=== PATIENT | female | born 1990 | race American Indian/Alaskan Native ===

== ENCOUNTER 2017-06-18 12:39 | Emergency (ER) | payer SELFPAY ==
[2017-06-18 13:39] LABS: Mucus,Urine FEW /HPF
[2017-06-18 13:51] LABS: Bilirubin,Urine Negative (Negative); Blood,Urine Negative (Negative); Ketones,Urine Negative (Negative); Nitrite,Urine Negative (Negative); Urobilinogen,Urine < 2.0 mg/dL (<2.0)
[2017-06-18 13:52] LABS: Leukocyte Esterase,Urine Small (Negative)
[2017-06-18 14:02] LABS: Basophils % (Auto) 0.6 % (0.0-1.8); Eosinophils % (Auto) 3.9 % (0.0-4.3); Hematocrit 38.8 % (30.3-42.9); Hemoglobin 12.6 gm/dl (10.1-14.3); Mean Corpuscular HGB Conc 32 % (30-34); Mean Corpuscular Hemoglobin 27 pg (28-32); Mean Corpuscular Volume 84 fl (79-97); Platelet Count 319 K/mm3 (140-440); Red Blood Count 4.65 M/mm3 (3.65-5.03); Red Cell Distribution Width 15.4 % (13.2-15.2)
[2017-06-18 14:08] LABS: Alanine Aminotransferase 16 units/L (7-56); Albumin 4.2 g/dL (3.9-5); Albumin/Globulin Ratio 1.2 %; Alkaline Phosphatase 42 units/L (35-129); Anion Gap 18 mmol/L; BUN/Creatinine Ratio 22; Blood Urea Nitrogen 13 mg/dL (7-17); Calcium 8.9 mg/dL (8.4-10.2); Carbon Dioxide 23 mmol/L (22-30); Chloride 103.5 mmol/L (98-107); Glucose 89 mg/dL (65-100); Lipase 27 units/L (13-60); Potassium 4.3 mmol/L (3.6-5.0); Sodium 140 mmol/L (137-145); Total Protein 7.6 g/dL (6.3-8.2)
[2017-06-18] MEDS ORDERED: ULTRAM PO ONE (20:42)
[2017-06-18] MEDS ORDERED: TORADOL IM ONE (20:42)
--- NOTE | 2017-06-18 20:47 | Emergency Department Report ---
ED Female HPI - General Chief complaint: Abdominal Pain Stated complaint: ABDOMINAL PAIN,VAGINAL BLEEDING Time Seen by Provider: 06/18/17 20:06 Source: patient Mode of arrival: Ambulatory Limitations: No Limitations - History of Present Illness Initial comments: 27-year-old female in no significant past medical history presents to the hospital complaining of suprapubic pelvic pain and vaginal spotting since January. Patient states she has had irregular menses during this time sometimes skipping months then having 2 periods within 1 month. Menstrual flow lasting 11 -13 days instead a typical 5 days. Patient have a severe intermittent cramps with bleeding episodes. Motrin helps pain temporarily. No bleeding reported at this time. Patient denies lightheadedness, fever, or weakness. Patient had multiple negative tests at home prior to arrival. She socially active with one partner and does not use condoms. Patient does report abnormal Pap smear last year with subsequent normal Pap smear. She expresses concern for cervical cancer and HPV. BUDGET ANALYST doctor none - Related Data Previous Rx's Medication Instructions Recorded Last Taken Type Acetaminophen/Codeine [Tylenol 1 tab PO Q6H PRN #15 tab 12/13/14 Unknown Rx /Codeine # 3 tab] Famotidine [Pepcid] 20 mg PO BID #40 tablet 12/13/14 Unknown Rx Promethazine [Phenergan] 25 mg PO Q6H PRN #20 tablet 12/13/14 Unknown Rx oxyCODONE /ACETAMINOPHEN [Percocet 1 tab PO Q6HR PRN #30 tablet 04/29/15 Unknown Rx 5/325 mg] Ibuprofen [Motrin 800 MG tab] 800 mg PO Q8HR PRN #30 tablet 06/18/17 Unknown Rx metroNIDAZOLE [Flagyl] 500 mg PO Q12HR #14 tab 06/18/17 Unknown Rx traMADol [Ultram 50 MG tab] 50 mg PO Q6HR PRN #20 tablet 06/18/17 Unknown Rx Allergies Allergy/AdvReac Type Severity Reaction Status Date / Time No Known Allergies Allergy Verified 09/06/14 13:04 ED Review of Systems ROS: Stated complaint: ABDOMINAL PAIN,VAGINAL BLEEDING Other details as noted in HPI Comment: All other systems reviewed and negative Other: Constitutional: No fevers chills Eyes: No eye pain visual changes or discharge ENT: No ear pain or throat pain Neck: Denies pain Respiratory: Denies cough wheezing shortness of breath Cardiovascular: Denies chest pain, palpitations, syncope GI: Denies nausea, vomiting, diarrhea : Denies dysuria Musculoskeletal: Denies back pain, joint swelling Skin: Denies rash, lesions, erythema Neurologic: Denies headache, numbness, weakness Psychiatric: Denies suicidal ideation, hallucinations ED Past Medical Hx - Past Medical History Hx Hypertension: No Hx Congestive Heart Failure: No Hx Diabetes: No Hx Deep Vein Thrombosis: No Hx Renal Disease: No Hx Sickle Cell Disease: No Hx Seizures: No Hx Asthma: No Hx COPD: No Hx HIV: No - Social History Smoking Status: Current Every Day Smoker Substance Use Type: None - Medications Home Medications: Home Medications Medication Instructions Recorded Confirmed Last Taken Type Acetaminophen/Codeine [Tylenol 1 tab PO Q6H PRN #15 tab 12/13/14 03/07/15 Unknown Rx /Codeine # 3 tab] Famotidine [Pepcid] 20 mg PO BID #40 tablet 12/13/14 03/07/15 Unknown Rx Promethazine [Phenergan] 25 mg PO Q6H PRN #20 tablet 12/13/14 03/07/15 Unknown Rx oxyCODONE /ACETAMINOPHEN [Percocet 1 tab PO Q6HR PRN #30 tablet 04/29/15 Unknown Rx 5/325 mg] Ibuprofen [Motrin 800 MG tab] 800 mg PO Q8HR PRN #30 tablet 06/18/17 Unknown Rx metroNIDAZOLE [Flagyl] 500 mg PO Q12HR #14 tab 06/18/17 Unknown Rx traMADol [Ultram 50 MG tab] 50 mg PO Q6HR PRN #20 tablet 06/18/17 Unknown Rx ED Physical Exam - General Limitations: No Limitations - Other Other exam information: General: No limitations, patient is alert in no acute distress Head exam: Atraumatic, normocephalic Eyes exam: Normal appearance ENT: Moist mucous membrane, normal oropharynx Neck exam: Normal inspection, full range of motion, no meningismus nontender Respiratory exam: Clear to auscultation bilateral, no wheezes, rales, crackles Cardiovascular: Normal rate and rhythm, normal heart sounds Abdomen: Soft, nondistended, suprapubic tenderness, with normal bowel sounds, no rebound, or guarding : White vaginal discharge, no CMT or adnexal tenderness, no gross cervical abnormality Extremity: Full range of motion normal inspection no deformity Back: Normal Inspection, full range of motion, no tenderness Neurologic: Alert, oriented x3, cranial nerves intact, no motor or sensory deficit Psychiatric: normal affect, normal mood Skin: Warm, dry, intact ED Course Vital Signs 06/18/17 12:45 Temperature 98 F Pulse Rate 84 Respiratory 18 Rate Blood Pressure 130/84 O2 Sat by Pulse 100 Oximetry - Reevaluation(s) Reevaluation #1: 06/18/17 20:48 Toradol and tramadol ordered ED Medical Decision Making - Lab Data Result diagrams: 06/18/17 13:04 06/18/17 13:04 Lab Results 06/18/17 06/18/17 06/18/17 Range/Units 13:04 13:04 13:04 WBC 6.0 (4.5-11.0) K/mm3 RBC 4.65 (3.65-5.03) M/mm3 Hgb 12.6 (10.1-14.3) gm/dl Hct 38.8 (30.3-42.9) % MCV 84 (79-97) fl MCH 27 L (28-32) pg MCHC 32 (30-34) % RDW 15.4 H (13.2-15.2) % Plt Count 319 (140-440) K/mm3 Lymph % (Auto) 29.7 (13.4-35.0) % Wallace % (Auto) 4.4 (0.0-7.3) % Eos % (Auto) 3.9 (0.0-4.3) % Baso % (Auto) 0.6 (0.0-1.8) % Lymph # 1.8 (1.2-5.4) K/mm3 Wallace # 0.3 (0.0-0.8) K/mm3 Eos # 0.2 (0.0-0.4) K/mm3 Baso # 0.0 (0.0-0.1) K/mm3 Seg Neutrophils % 61.4 (40.0-70.0) % Seg Neutrophils # 3.7 (1.8-7.7) K/mm3 Sodium 140 (137-145) mmol/L Potassium 4.3 (3.6-5.0) mmol/L Chloride 103.5 (98-107) mmol/L Carbon Dioxide 23 (22-30) mmol/L Anion Gap 18 mmol/L BUN 13 (7-17) mg/dL Creatinine 0.6 L (0.7-1.2) mg/dL Estimated GFR > 60 ml/min BUN/Creatinine Ratio 22 % Glucose 89 (65-100) mg/dL Calcium 8.9 (8.4-10.2) mg/dL Total Bilirubin 0.20 (0.1-1.2) mg/dL AST 16 (5-40) units/L ALT 16 (7-56) units/L Alkaline Phosphatase 42 (35-129) units/L Total Protein 7.6 (6.3-8.2) g/dL Albumin 4.2 (3.9-5) g/dL Albumin/Globulin Ratio 1.2 % Lipase 27 (13-60) units/L HCG, Qual Negative (Negative) Urine Color (Yellow) Urine Turbidity (Clear) Urine pH (5.0-7.0) Ur Specific [place] (1.003-1.030) Urine Protein (Negative) mg/dL Urine Glucose (UA) (Negative) mg/dL Urine Ketones (Negative) mg/dL Urine Blood (Negative) Urine Nitrite (Negative) Ur Reducing Substances Urine Bilirubin (Negative) Urine Ictotest Urine Urobilinogen (<2.0) mg/dL Ur Leukocyte Esterase (Negative) Urine WBC (Auto) (0.0-6.0) /HPF Urine RBC (Auto) (0.0-6.0) /HPF U Epithel Cells (Auto) (0-13.0) /HPF Urine Mucus /HPF 06/18/17 Range/Units 13:06 WBC (4.5-11.0) K/mm3 RBC (3.65-5.03) M/mm3 Hgb (10.1-14.3) gm/dl Hct (30.3-42.9) % MCV (79-97) fl MCH (28-32) pg MCHC (30-34) % RDW (13.2-15.2) % Plt Count (140-440) K/mm3 Lymph % (Auto) (13.4-35.0) % Wallace % (Auto) (0.0-7.3) % Eos % (Auto) (0.0-4.3) % Baso % (Auto) (0.0-1.8) % Lymph # (1.2-5.4) K/mm3 Wallace # (0.0-0.8) K/mm3 Eos # (0.0-0.4) K/mm3 Baso # (0.0-0.1) K/mm3 Seg Neutrophils % (40.0-70.0) % Seg Neutrophils # (1.8-7.7) K/mm3 Sodium (137-145) mmol/L Potassium (3.6-5.0) mmol/L Chloride (98-107) mmol/L Carbon Dioxide (22-30) mmol/L Anion Gap mmol/L BUN (7-17) mg/dL Creatinine (0.7-1.2) mg/dL Estimated GFR ml/min BUN/Creatinine Ratio % Glucose (65-100) mg/dL Calcium (8.4-10.2) mg/dL Total Bilirubin (0.1-1.2) mg/dL AST (5-40) units/L ALT (7-56) units/L Alkaline Phosphatase (35-129) units/L Total Protein (6.3-8.2) g/dL Albumin (3.9-5) g/dL Albumin/Globulin Ratio % Lipase (13-60) units/L HCG, Qual (Negative) Urine Color Yellow (Yellow) Urine Turbidity Slightly cloudy (Clear) Urine pH 5.0 (5.0-7.0) Ur Specific [place] 1.030 (1.003-1.030) Urine Protein 30 mg/dl (Negative) mg/dL Urine Glucose (UA) Negative (Negative) mg/dL Urine Ketones Negative (Negative) mg/dL Urine Blood Negative (Negative) Urine Nitrite Negative (Negative) Ur Reducing Substances Not Reportable Urine Bilirubin Negative (Negative) Urine Ictotest Not Reportable Urine Urobilinogen < 2.0 (<2.0) mg/dL Ur Leukocyte Esterase Small (Negative) Urine WBC (Auto) 1.0 (0.0-6.0) /HPF Urine RBC (Auto) 1.0 (0.0-6.0) /HPF U Epithel Cells (Auto) 6.0 (0-13.0) /HPF Urine Mucus Few /HPF - Radiology Data Radiology results: report reviewed (us transvag/pelvic: 1.9cm slightly complex right ovarian cyst. no mral doppler flow) - Medical Decision Making Plan to treat patient symptomatically for irregular painful menses. Patient receiving Flagyl for BV. O2 sat significant for ovarian cysts. BUDGET ANALYST follow-up will be encouraged. - Differential Diagnosis , anemia, fibroids, STD, vaginitis, cervicitis, Cancer Critical Care Time: No Critical care attestation.: If time is entered above; I have spent that time in minutes in the direct care of this critically ill patient, excluding procedure time. ED Disposition Clinical Impression: Menometrorrhagia, Right ovarian cyst, BV (bacterial vaginosis) Disposition: DC- TO HOME OR SELFCARE Is pt being admited?: No Does the pt Need Aspirin: No Condition: Stable Instructions: Dysfunctional Uterine Bleeding (ED), Bacterial Vaginosis (ED), Ovarian Cyst (ED) Additional Instructions: Take the medication as prescribed. It is very important that you follow up with BUDGET ANALYST for further evaluation of irregular menstrual cycle and ovarian cyst. Your gonorrhea and chlamydia tests are pending and take approximately 3-4 days result. You may obtain results in medical records with a photo ID. You may also obtain results through the follow-up doctor office via medical record request. Prescriptions: Ibuprofen [Motrin 800 MG tab] 800 mg PO Q8HR PRN #30 tablet PRN Reason: Pain metroNIDAZOLE [Flagyl] 500 mg PO Q12HR #14 tab traMADol [Ultram 50 MG tab] 50 mg PO Q6HR PRN #20 tablet PRN Reason: Pain Referrals: [facility] [Provider Group] - 3-5 Days [facility] [Outside] - 3-5 Days [facility] [Provider Group] - 3-5 Days Forms: STI Treatment and Prevention, Accompanied Note Time of Disposition: 22:44
[2017-06-18] MEDS ORDERED: FLAGYL PO ONE (22:02)
--- NOTE | 2017-06-18 22:29 | Ultrasound Report ---
FINAL REPORT PROCEDURE: US PELVIC COMPLETE TECHNIQUE: Real-time transabdominal sonography in multiple planes of the pelvis was performed. The pelvic structures, especially the ovaries were not optimally visualized. Transvaginal sonography was then performed to better evaluate the structures and/or abnormalities described below with image documentation. Color Doppler ultrasound is performed of the ovaries. HISTORY: irregular menses, pelvic pain COMPARISON: No prior studies are available for comparison. FINDINGS: Uterus measures 9.4 cm in length. Endometrial thickness is 1.3 cm. Right ovary measures 3.3 x 2.1 x 3.7 cm. It contains a slightly complex 1.9 cm cyst. Left ovary measures 2.9 x 1.3 x 2.8 cm. Normal Doppler flow is seen in the ovaries. Trace free pelvic fluid is likely physiologic. IMPRESSION: 1.9 cm slightly complex right ovarian cyst is seen.
[2017-06-19 00:54] VITALS: BP 128/77
== END 2017-06-18 23:00 | disposition home or self-care (01) ==
LOC: ED 12:39
DX: N83.201 Unspecified ovarian cyst, right side (principal); N76.0 Acute vaginitis; N92.1 Excessive and frequent menstruation with irregular cycle; F17.210 Nicotine dependence, cigarettes, uncomplicated
CPT/HCPCS: 36415; 76830; 76856; 80053; 81001; 83690; 84703; 85025; 87210; 87591; 96372; 99284; J1885

== ENCOUNTER 2017-11-21 00:33 | Emergency (ER) | payer SELFPAY ==
[2017-11-21 03:01] LABS: Hematocrit 40.4 % (30.3-42.9); Hemoglobin 13.4 gm/dl (10.1-14.3); Mean Corpuscular HGB Conc 33 % (30-34); Mean Corpuscular Hemoglobin 27 pg (28-32); Mean Corpuscular Volume 81 fl (79-97); Platelet Count 279 K/mm3 (140-440); Red Blood Count 4.97 M/mm3 (3.65-5.03); Red Cell Distribution Width 14.8 % (13.2-15.2)
[2017-11-21 03:15] LABS: BUN/Creatinine Ratio 13; Blood Urea Nitrogen 8 mg/dL (7-17); Calcium 8.9 mg/dL (8.4-10.2)
[2017-11-21 03:16] LABS: Hemolysis Index 0
[2017-11-21 03:24] LABS: Bilirubin,Urine NEG (Negative); Blood,Urine NEG (Negative); Color,Urine Yellow (Yellow); Hyaline Casts,Urine 1 /LPF; Mucus,Urine 3+ /HPF; Protein,Urine <15 mg/dL mg/dL (Negative); Urobilinogen,Urine < 2.0 mg/dL (<2.0)
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
[2017-11-21] MEDS ORDERED: ZOFRAN ODT PO ONE ×2 (04:09→06:37)
[2017-11-21 06:10] VITALS: BP 106/55
[2017-11-21] MEDS ORDERED: TYLENOL PO ONE (06:38)
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
[2017-11-21] MEDS ORDERED: PHENERGAN PO ONE (07:03)
== END 2017-11-21 08:34 | disposition home or self-care (01) ==
LOC: ED 00:33
DX: K52.9 Noninfective gastroenteritis and colitis, unspecified (principal); R42 Dizziness and giddiness; R51 Headache; R59.0 Localized enlarged lymph nodes; F17.200 Nicotine dependence, unspecified, uncomplicated
CPT/HCPCS: 36415; 70450; 80048; 81001; 84703; 85027; 99284; Q0162; Q0169

== ENCOUNTER 2017-11-28 17:24 | Emergency (ER) | payer SELFPAY ==
[2017-11-28 18:26] LABS: Basophils % (Auto) 0.2 % (0.0-1.8); Eosinophils # (Auto) 0.1 K/mm3 (0.0-0.4); Eosinophils % (Auto) 2.7 % (0.0-4.3); Hematocrit 39.8 % (30.3-42.9); Hemoglobin 12.7 gm/dl (10.1-14.3); Lymphocytes # (Auto) 1.2 K/mm3 (1.2-5.4); Lymphocytes % (Auto) 31.9 % (13.4-35.0); Mean Corpuscular HGB Conc 32 % (30-34); Mean Corpuscular Hemoglobin 26 pg (28-32); Mean Corpuscular Volume 82 fl (79-97); Monocytes # (Auto) 0.4 K/mm3 (0.0-0.8); Monocytes % (Auto) 10.4 % (0.0-7.3); Platelet Count 321 K/mm3 (140-440); Red Blood Count 4.86 M/mm3 (3.65-5.03); Red Cell Distribution Width 14.8 % (13.2-15.2)
[2017-11-28 18:46] LABS: Alanine Aminotransferase 15 units/L (7-56); BUN/Creatinine Ratio 10; Blood Urea Nitrogen 6 mg/dL (7-17); Calcium 8.7 mg/dL (8.4-10.2); Hemolysis Index 6
[2017-11-28 19:05] LABS: HCG Qualitative,Urine Negative (Negative)
[2017-11-28 19:19] LABS: Mucus,Urine 3+ /HPF
[2017-11-28 19:20] LABS: Bilirubin,Urine NEG (Negative); Blood,Urine MOD (Negative); Color,Urine Yellow (Yellow); Urobilinogen,Urine < 2.0 mg/dL (<2.0)
[2017-11-29] MEDS ORDERED: REGLAN IV ONE (04:07)
[2017-11-29] MEDS ORDERED: NACL 0.9% 1000 ML 1,000 ML IV ONE (04:07)
[2017-11-29] MEDS ORDERED: NACL ONE (04:13)
--- NOTE | 2017-11-29 05:35 | Cat Scan Report ---
FINAL REPORT PROCEDURE: CT ABDOMEN PELVIS W CON TECHNIQUE: Computerized axial tomography of the abdomen and pelvis was performed after the IV injection of iodinated nonionic contrast. HISTORY: intractable nausea and vomiting COMPARISON: No prior studies are available for comparison. FINDINGS: Visualized lower thorax: No significant abnormality. Liver: Normal size and attenuation. Spleen: Normal size and attenuation. Gallbladder and biliary system: Normal. Pancreas: Normal. Adrenals: Normal. Kidneys: Normal. GI tract: No obstruction. No ileus or enteritis. The cecum, appendix and colon are normal.. Lymph nodes and mesentery: Normal. Vasculature: Normal. Bladder: Normal. Reproductive organs: No pelvic masses. Peritoneum: No free fluid. Musculoskeletal structures: No significant abnormality. Other: None. IMPRESSION: There is no evidence of intestinal or urinary tract obstruction. No ileus or enteritis. The appendix is normal.
[2017-11-29] MEDS ORDERED: ROCEPHIN/NS 1 GM/50 ML 1 GM/50 ML BAG IV ONE (06:20)
[2017-11-29] MEDS ORDERED: cefTRIAXone 1 GM in NACL 0.9% 20 ML IV ONE (07:00)
--- NOTE | 2017-11-29 07:28 | Emergency Department Report ---
ED General Adult HPI - General Chief complaint: Nausea/Vomiting/Diarrhea Stated complaint: CONTINUOUS VOMITTING Time Seen by Provider: 11/29/17 06:18 Source: patient Mode of arrival: Ambulatory Limitations: No Limitations - History of Present Illness Initial comments: Plan 7-year-old female who was seen a few days ago for similar symptoms. She states that she took 2 unknown antibiotics from her mother. She developed a "yeast infection". She has not complained of dysuria or frequency. She states her nausea has essentially resolved and he is not vomiting now nor has she says she's been in the emergency department. She does not complain of abdominal pain. She's had no recent fever or chills. She's been recently treated with Flagyl (06/2018). -: Gradual Consistency: now resolved Improves with: none Worsens with: none Associated Symptoms: denies other symptoms - Related Data Previous Rx's Medication Instructions Recorded Last Taken Type Acetaminophen/Codeine [Tylenol 1 tab PO Q6H PRN #15 tab 12/13/14 Unknown Rx /Codeine # 3 tab] Famotidine [Pepcid] 20 mg PO BID #40 tablet 12/13/14 Unknown Rx Promethazine [Phenergan] 25 mg PO Q6H PRN #20 tablet 12/13/14 Unknown Rx oxyCODONE /ACETAMINOPHEN [Percocet 1 tab PO Q6HR PRN #30 tablet 04/29/15 Unknown Rx 5/325 mg] Ibuprofen [Motrin 800 MG tab] 800 mg PO Q8HR PRN #30 tablet 06/18/17 Unknown Rx metroNIDAZOLE [Flagyl] 500 mg PO Q12HR #14 tab 06/18/17 Unknown Rx traMADol [Ultram 50 MG tab] 50 mg PO Q6HR PRN #20 tablet 06/18/17 Unknown Rx Ondansetron [Zofran TAB] 4 mg PO Q8HR PRN #10 tablet 11/21/17 Unknown Rx Cefuroxime Axetil [Ceftin] 250 mg PO Q12H #14 ml 11/29/17 Unknown Rx Allergies Allergy/AdvReac Type Severity Reaction Status Date / Time No Known Allergies Allergy Verified 09/06/14 13:04 ED Review of Systems ROS: Stated complaint: CONTINUOUS VOMITTING Other details as noted in HPI Constitutional: denies: chills, fever Eyes: denies: eye pain, eye discharge, vision change ENT: denies: ear pain, throat pain Respiratory: denies: cough, shortness of breath, wheezing Cardiovascular: denies: chest pain, palpitations Endocrine: no symptoms reported Gastrointestinal: denies: abdominal pain, nausea, diarrhea Genitourinary: as per HPI, discharge Musculoskeletal: denies: back pain, joint swelling, arthralgia Skin: denies: rash, lesions Neurological: denies: headache, weakness, paresthesias Psychiatric: denies: anxiety, depression Hematological/Lymphatic: denies: easy bleeding, easy bruising ED Past Medical Hx - Past Medical History Hx Hypertension: No Hx Congestive Heart Failure: No Hx Diabetes: No Hx Deep Vein Thrombosis: No Hx Renal Disease: No Hx Sickle Cell Disease: No Hx Seizures: No Hx Asthma: No Hx COPD: No Hx HIV: No - Social History Smoking Status: Current Every Day Smoker Substance Use Type: None - Medications Home Medications: Home Medications Medication Instructions Recorded Confirmed Last Taken Type Acetaminophen/Codeine [Tylenol 1 tab PO Q6H PRN #15 tab 12/13/14 03/07/15 Unknown Rx /Codeine # 3 tab] Famotidine [Pepcid] 20 mg PO BID #40 tablet 12/13/14 03/07/15 Unknown Rx Promethazine [Phenergan] 25 mg PO Q6H PRN #20 tablet 12/13/14 03/07/15 Unknown Rx oxyCODONE /ACETAMINOPHEN [Percocet 1 tab PO Q6HR PRN #30 tablet 04/29/15 Unknown Rx 5/325 mg] Ibuprofen [Motrin 800 MG tab] 800 mg PO Q8HR PRN #30 tablet 06/18/17 Unknown Rx metroNIDAZOLE [Flagyl] 500 mg PO Q12HR #14 tab 06/18/17 Unknown Rx traMADol [Ultram 50 MG tab] 50 mg PO Q6HR PRN #20 tablet 06/18/17 Unknown Rx Ondansetron [Zofran TAB] 4 mg PO Q8HR PRN #10 tablet 11/21/17 Unknown Rx Cefuroxime Axetil [Ceftin] 250 mg PO Q12H #14 ml 11/29/17 Unknown Rx ED Physical Exam - General Limitations: No Limitations General appearance: alert, in no apparent distress - Head Head exam: Present: atraumatic, normocephalic - Eye Eye exam: Present: normal appearance, PERRL, EOMI. Absent: scleral icterus - ENT ENT exam: Present: mucous membranes moist - Neck Neck exam: Present: normal inspection. Absent: tenderness, meningismus - Respiratory Respiratory exam: Present: normal lung sounds bilaterally. Absent: respiratory distress - Cardiovascular Cardiovascular Exam: Present: regular rate, normal rhythm. Absent: systolic murmur, diastolic murmur, rubs, gallop - GI/Abdominal GI/Abdominal exam: Present: soft, normal bowel sounds. Absent: distended, tenderness, guarding, rebound, rigid - Extremities Exam Extremities exam: Present: normal inspection - Back Exam Back exam: Present: normal inspection - Neurological Exam Neurological exam: Present: alert, oriented X3, CN II-XII intact. Absent: motor sensory deficit - Psychiatric Psychiatric exam: Present: normal affect, normal mood - Skin Skin exam: Present: warm, dry, intact, normal color. Absent: rash ED Course Vital Signs 11/28/17 11/29/17 11/29/17 17:28 02:44 04:00 Temperature 98.8 F Pulse Rate 78 64 Respiratory 16 16 16 Rate Blood Pressure 111/81 Blood Pressure 134/71 [Left] O2 Sat by Pulse 100 98 100 Oximetry 11/29/17 07:10 Temperature Pulse Rate 72 Respiratory 16 Rate Blood Pressure Blood Pressure 133/78 [Left] O2 Sat by Pulse 100 Oximetry - Reevaluation(s) Reevaluation #1: Patient comfortable, well-hydrated and without nausea. She was given ceftriaxone and azithromycin. She is referred to [facility] for further care and evaluation. A urine culture is pending. 11/29/17 07:36 11/29/17 07:37 ED Medical Decision Making - Lab Data Result diagrams: 11/28/17 17:45 11/28/17 17:45 Laboratory Results - last 24 hr 11/28/17 11/28/17 11/28/17 17:45 17:45 18:07 WBC 3.7 L RBC 4.86 Hgb 12.7 Hct 39.8 MCV 82 MCH 26 L MCHC 32 RDW 14.8 Plt Count 321 Lymph % (Auto) 31.9 [place] % (Auto) 10.4 H Eos % (Auto) 2.7 Baso % (Auto) 0.2 Lymph # 1.2 [place] # 0.4 Eos # 0.1 Baso # 0.0 Seg Neutrophils % 54.8 Seg Neutrophils # 2.0 Sodium 140 Potassium 3.6 Chloride 100.0 Carbon Dioxide 28 Anion Gap 16 BUN 6 L Creatinine 0.6 L Estimated GFR > 60 BUN/Creatinine Ratio 10 Glucose 98 Calcium 8.7 Total Bilirubin 0.40 AST 15 ALT 15 Alkaline Phosphatase 59 Total Protein 7.7 Albumin 4.0 Albumin/Globulin Ratio 1.1 Urine Color Yellow Urine Turbidity Clear Urine pH 6.0 Ur Specific [place] 1.023 Urine Protein 30 mg/dl Urine Glucose (UA) Neg Urine Ketones 20 Urine Blood Mod Urine Nitrite Neg Ur Reducing Substances Not Reportable Urine Bilirubin Neg Urine Ictotest Not Reportable Urine Urobilinogen < 2.0 Ur Leukocyte Esterase Mod Urine WBC (Auto) 8.0 H Urine RBC (Auto) 3.0 U Epithel Cells (Auto) 12.0 Urine Mucus 3+ Urine HCG, Qual Negative Critical care attestation.: If time is entered above; I have spent that time in minutes in the direct care of this critically ill patient, excluding procedure time. ED Disposition Clinical Impression: UTI (urinary tract infection) Qualifiers: Urinary tract infection type: acute cystitis Hematuria presence: without hematuria Qualified Code(s): N30.00 - Acute cystitis without hematuria Disposition: DC-01 TO HOME OR SELFCARE Is pt being admited?: No Does the pt Need Aspirin: No Condition: Stable Instructions: Urinary Tract Infection in Women (ED), Vaginitis (ED) Additional Instructions: Further evaluation of the buggy ladle tender as recommended. Follow-up on your urine culture which will be resulted in 2-3 days. See referral. Return any acute change or problem. Prescriptions: Cefuroxime Axetil [Ceftin] 250 mg PO Q12H #14 ml Referrals: PRIMARY CARE [Primary Care Provider] - 3-5 Days Time of Disposition: 07:38
[2017-11-29 07:31] VITALS: BP 133/78
== END 2017-11-29 07:54 | disposition home or self-care (01) ==
LOC: ED 17:24
DX: N39.0 Urinary tract infection, site not specified (principal); F17.200 Nicotine dependence, unspecified, uncomplicated
CPT/HCPCS: 36415; 74177; 80053; 81001; 81025; 85025; 87086; J0696; J2765; J7030; Q9967; 96361; 96365; 96375

== ENCOUNTER 2019-01-01 11:12 | Emergency (ER) | payer OTHER ==
--- NOTE | 2019-01-01 11:28 | Emergency Department Report ---
Chief Complaint: Skin/Abscess/Foreign Body Stated Complaint: RT EAR QTIP STUCK Time Seen by Provider: 01/01/19 11:22 - HPI History of Present Illness: This is a 28 y.o. female that presents with muffled hearing to right ear. Patient think the tip of the Q-tip is stuck in her ear. No PMH Denies pain. - Exam Vital Signs: Vital Signs 01/01/19 11:22 Temperature 98.7 F Pulse Rate 96 H Respiratory 16 Rate Blood Pressure 136/82 [Right] O2 Sat by Pulse 99 Oximetry MSE screening note: Focused history and physical exam performed. Due to findings the following was ordered: ACC for further evaluation. ED Disposition for MSE Condition: Stable
--- NOTE | 2019-01-01 12:22 | Emergency Department Report ---
Chief Complaint: Skin/Abscess/Foreign Body Stated Complaint: RT EAR QTIP STUCK Time Seen by Provider: 01/01/19 11:22 - HPI History of Present Illness: 28-year-old female presents to ED complaining of foreign body in right ear after she tried cleaning it with a Q-tip yesterday. Patient states she tends Q-tips fell onto her ears. She denies any puncture note the eardrums, difficulty hearing. - ROS Review of Systems: As noted in HPI Denies all other symptoms - Exam Vital Signs: Vital Signs 01/01/19 11:22 Temperature 98.7 F Pulse Rate 96 H Respiratory 16 Rate Blood Pressure 136/82 [Right] O2 Sat by Pulse 99 Oximetry Physical Exam: GENERAL: Alert and oriented x3, no apparent distress, Normal Gait, atraumatic. EARS: symetrical, atraumatic, non tender, ear canal clear and without any cerumen or foreign object, tympanic membrance non inflamed. gross auditory nml bilaterally. SKIN: Warm and dry, No lesions, No ulceration or induration present. MSE screening note: Focused history and physical exam performed. Due to findings the following was ordered: ED Medical Decision Making - Medical Decision Making 28-year-old female presented foreign body to the right ear. Upon evaluation there was no foreign object in both ears. Bilat tympanic membrane were visualized, no TM rupture, no erythema. Discussed the patient foreign object may have fallen now between yesterday and today. Patient is in no acute distress. Discussed follow-up with primary care physician. Sounds are normal. Patient will be discharged at this time ED Disposition for MSE Clinical Impression: Foreign body in ear Disposition: DC-01 TO HOME OR SELFCARE Is pt being admited?: No Does the pt Need Aspirin: No Condition: Stable Instructions: Ear Foreign Body (ED) Additional Instructions: Make sure to follow up with the primary care physician as discussed. Take all your medications as you've been prescribed. If you have any worsening symptoms or develop new symptoms please return to ED immediately. Referrals: [facility] [Outside] - 3-5 Days [facility] [Outside] - 3-5 Days Forms: Work/School Release Form(ED) Time of Disposition: 12:22
[2019-01-01 12:41] VITALS: BP 136/90
== END 2019-01-01 12:32 | disposition home or self-care (01) ==
LOC: ED 11:12
DX: T16.1XXA Foreign body in right ear, initial encounter (principal); X58.XXXA Exposure to other specified factors, initial encounter; Y93.89 Activity, other specified; Y92.89 Other specified places as the place of occurrence of the external cause; Y99.8 Other external cause status
CPT/HCPCS: 99282

== ENCOUNTER 2020-06-28 18:07 | Emergency (ER) | payer SELFPAY ==
[2020-06-28 19:09] VITALS: BP 119/79
--- NOTE | 2020-06-28 19:51 | Event Note ---
ED Screening Note ED Screening Note: states she has vaginal discharge that began 3 days ago abd pain generalized body aches no dysuria states she feels like she vaginal swelling +nausea no vomiting or diarrhea PMHx none no allergies to meds LNMP: 06/16/2020 states she believes her "ex gave her something" This initial assessment/diagnostic orders/clinical plan/treatment(s) is/are subject to change based on patients health status, clinical progression and re- assessment by fellow clinical providers in the ED. Further treatment and workup at subsequent clinical providers discretion. Patient/guardian urged not to elope from the ED as their condition may be serious if not clinically assessed and managed. Initial orders include: ua, urine preg
[2020-06-28 20:47] LABS: HCG Qualitative,Urine Negative (Negative)
[2020-06-28 21:02] LABS: Bilirubin,Urine NEG (Negative); Blood,Urine NEG (Negative); Color,Urine Yellow (Yellow); Mucus,Urine 3+ /HPF; Urobilinogen,Urine < 2.0 mg/dL (<2.0)
--- NOTE | 2020-06-28 22:00 | Emergency Department Report ---
ED Female HPI - General Chief complaint: Urogenital-Female Stated complaint: VAGINAL DISCHARGE/BODY ACHE Time Seen by Provider: 06/28/20 19:49 Source: patient Mode of arrival: Ambulatory Limitations: No Limitations - History of Present Illness Initial comments: The patient was evaluated in the emergency department for symptoms described in the history of present illness. He/she was evaluated in the context of the global COVID-19 pandemic, which necessitated consideration that the patient might be at risk for infection with the virus that causes COVID-19. Institutional protocols and algorithms that pertain to the evaluation of patients at risk for COVID-19 are in a state of rapid change based on information released by regulatory bodies including the CDC and federal and state organizations. These policies and algorithms were followed during the patient's care in the emergency department. Please note that these policies, procedures and recommendations changed on a rapid basis. 30-year-old -[place] female presents to the emergency room complaining of copious amount of vaginal discharge with body aches and lightheadedness. Patient complains of swelling to the vaginal area. Patient complains of back pain fatigue and body aches. Patient states that she has some chest discomfort when she deep breathes or coughs. Patient is concerned for STD as her sexual partner reports he has cheated on her. Patient denies any abdominal pain today but had abdominal pain 3 days ago. Patient admits to fever chills. Denies any dysuria no nausea no vomiting. MD Complaint: vaginal discharge, possible STD Onset/Timin -: days(s) Location: labia Radiation: non-radiating Severity: moderate Quality: aching Consistency: intermittent Improves with: none Worsens with: none Are you Now?: No Last Menstrual Period: 06/21/20 EDC: 03/28/21 Associated Symptoms: vaginal discharge, fever/chills, other (Fatigue). denies: abdominal pain, nausea/vomiting, headaches, dysuria, hematuria - Related Data Sexually active: Yes Previous Rx's Medication Instructions Recorded Last Taken Type Acetaminophen/Codeine [Tylenol 1 tab PO Q6H PRN #15 tab 12/13/14 Unknown Rx /Codeine # 3 tab] Famotidine [Pepcid] 20 mg PO BID #40 tablet 12/13/14 Unknown Rx Promethazine [Phenergan] 25 mg PO Q6H PRN #20 tablet 12/13/14 Unknown Rx oxyCODONE /ACETAMINOPHEN [Percocet 1 tab PO Q6HR PRN #30 tablet 04/29/15 Unknown Rx 5/325 mg] Ibuprofen [Motrin 800 MG tab] 800 mg PO Q8HR PRN #30 tablet 06/18/17 Unknown Rx metroNIDAZOLE [Flagyl] 500 mg PO Q12HR #14 tab 06/18/17 Unknown Rx traMADoL [Ultram 50 MG tab] 50 mg PO Q6HR PRN #20 tablet 06/18/17 Unknown Rx Ondansetron [Zofran TAB] 4 mg PO Q8HR PRN #10 tablet 11/21/17 Unknown Rx Cefuroxime Axetil [Ceftin] 250 mg PO Q12H #14 ml 11/29/17 Unknown Rx Azithromycin 100 mg PO ONCE #2 tablet 06/28/20 Unknown Rx metroNIDAZOLE [Flagyl] 500 mg PO Q8HR 7 Days #21 tablet 06/28/20 Unknown Rx Allergies Allergy/AdvReac Type Severity Reaction Status Date / Time No Known Allergies Allergy Verified 01/01/19 11:12 ED Review of Systems ROS: Stated complaint: VAGINAL DISCHARGE/BODY ACHE Other details as noted in HPI Comment: All other systems reviewed and negative ED Past Medical Hx - Past Medical History Previous Medical History?: Yes Hx Hypertension: No Hx Congestive Heart Failure: No Hx Diabetes: No Hx Deep Vein Thrombosis: No Hx Renal Disease: No Hx Sickle Cell Disease: No (trait) Hx Seizures: No Hx Asthma: No Hx COPD: No Hx HIV: No - Surgical History Past Surgical History?: No - Social History Smoking Status: Current Every Day Smoker Substance Use Type: Alcohol, Marijuana - Medications Home Medications: Home Medications Medication Instructions Recorded Confirmed Last Taken Type Acetaminophen/Codeine [Tylenol 1 tab PO Q6H PRN #15 tab 12/13/14 03/07/15 Unknown Rx /Codeine # 3 tab] Famotidine [Pepcid] 20 mg PO BID #40 tablet 12/13/14 03/07/15 Unknown Rx Promethazine [Phenergan] 25 mg PO Q6H PRN #20 tablet 12/13/14 03/07/15 Unknown Rx oxyCODONE /ACETAMINOPHEN [Percocet 1 tab PO Q6HR PRN #30 tablet 04/29/15 Unknown Rx 5/325 mg] Ibuprofen [Motrin 800 MG tab] 800 mg PO Q8HR PRN #30 tablet 06/18/17 Unknown Rx metroNIDAZOLE [Flagyl] 500 mg PO Q12HR #14 tab 06/18/17 Unknown Rx traMADoL [Ultram 50 MG tab] 50 mg PO Q6HR PRN #20 tablet 06/18/17 Unknown Rx Ondansetron [Zofran TAB] 4 mg PO Q8HR PRN #10 tablet 11/21/17 Unknown Rx Cefuroxime Axetil [Ceftin] 250 mg PO Q12H #14 ml 11/29/17 Unknown Rx Azithromycin 100 mg PO ONCE #2 tablet 06/28/20 Unknown Rx metroNIDAZOLE [Flagyl] 500 mg PO Q8HR 7 Days #21 tablet 06/28/20 Unknown Rx ED Physical Exam - General Limitations: No Limitations General appearance: alert, in no apparent distress - Head Head exam: Present: atraumatic, normocephalic - Eye Eye exam: Present: normal appearance - ENT ENT exam: Present: mucous membranes moist - Neck Neck exam: Present: normal inspection - Respiratory Respiratory exam: Present: normal lung sounds bilaterally. Absent: respiratory distress, chest wall tenderness - Cardiovascular Cardiovascular Exam: Present: regular rate, normal rhythm. Absent: systolic murmur, diastolic murmur, rubs, gallop - GI/Abdominal GI/Abdominal exam: Present: soft, normal bowel sounds. Absent: distended, tenderness - External exam: Present: normal external exam Speculum exam: Present: vaginal discharge, cervical discharge. Absent: vaginal bleeding Bi-manual exam: Present: normal bi-manual exam. Absent: cervical motion tendernes, adnexal tenderness, adnexal mass, uterine enlargement, uterine tenderness - Extremities Exam Extremities exam: Present: normal inspection - Back Exam Back exam: Present: normal inspection - Neurological Exam Neurological exam: Present: alert, oriented X3 - Psychiatric Psychiatric exam: Present: normal affect, normal mood - Skin Skin exam: Present: warm, dry, intact, normal color. Absent: rash ED Course Vital Signs 06/28/20 06/28/20 19:06 21:54 Temperature 99.7 F H 101.6 F H Pulse Rate 89 Respiratory 18 Rate Blood Pressure 119/79 O2 Sat by Pulse 100 Oximetry ED Medical Decision Making - Radiology Data Radiology results: report reviewed [facility] [address] [place] [address] XRay Report Signed Patient: JOSH DAI R#: [id number] : 1990 Acct:[id number] Age/Sex: 30 / F ADM Date: 06/28/20 Loc: ED Attending Dr: Ordering Physician: GA BULLARD Date of Service: 06/28/20 Procedure(s): XR chest 1V ap Accession Number(s): [id number] cc: GA BULLARD Fluoro Time In Minutes: CHEST 1 VIEW INDICATION: chest pain with cough. COMPARISON: None. FINDINGS: Support devices: None. Heart: Normal. Lungs/Pleura: No acute pulmonary or pleural findings. IMPRESSION: 1. No acute findings. Signer Name: Trey Gunn MD Signed: 06/28/2020 10:39 PM Workstation Name: [id number] Transcribed By: AYANNA Dictated By: Trey Gunn MD Electronically Authenticated By: Trey Gunn MD Signed Date/Time: 06/28/202238 DD/ 38 TD/TT: - Medical Decision Making 30-year-old -[place] female presents to the emergency room complaining of copious amount of vaginal discharge with body aches and lightheadedness. Patient complains of swelling to the vaginal area. Patient complains of back pain fatigue and body aches. Patient states that she has some chest discomfort when she deep breathes or coughs. Patient is concerned for STD as her sexual partner reports he has cheated on her. Patient denies any abdominal pain today but had abdominal pain 3 days ago. Patient admits to fever chills. Denies any dysuria no nausea no vomiting. Discussed with patient she most likely has an STD. We will treat her with Rocephin 250 mg IM. Prescription for azithromycin and Flagyl. Discussed with patient that is very important for her to have a full STD panel which will include HIV herpes hepatitis and shingles. Discussed with patient that her chest x-ray is negative. Patient will be treated also for urinary tract infection which can be covered by azithromycin and Rocephin. Cultures will be sent. Patient be given ibuprofen for fever. Critical care attestation.: If time is entered above; I have spent that time in minutes in the direct care of this critically ill patient, excluding procedure time. ED Disposition Clinical Impression: Fever and chills, Concern about STD in female without diagnosis Disposition: DC-01 TO HOME OR SELFCARE Is pt being admited?: No Does the pt Need Aspirin: No Condition: Stable Instructions: Fever, Adult, [id number], Safe Sex, Urinary Tract Infection, Adult, [id number] Additional Instructions: We will treat her with Rocephin 250 mg IM. Prescription for azithromycin and Flagyl. Discussed with patient that is very important for her to have a full STD panel which will include HIV herpes hepatitis and shingles. Discussed with patient that her chest x-ray is negative. Patient will be treated also for urinary tract infection which can be covered by azithromycin and Rocephin. Cultures will be sent. Patient be given ibuprofen for fever. Also recommend to follow-up for a Covid test information will be given to you in your discharge papers. Prescriptions: Azithromycin 100 mg PO ONCE #2 tablet metroNIDAZOLE [Flagyl] 500 mg PO Q8HR 7 Days #21 tablet Referrals: PRIMARY CAREMD [Primary Care Provider] - 3-[address] [facility] [Outside] - 3-5 Days [facility] [Provider Group] - 3-5 Days Forms: Work/School Release Form(ED)
--- NOTE | 2020-06-28 22:43 | XRay Report ---
CHEST 1 VIEW INDICATION: chest pain with cough. COMPARISON: None. FINDINGS: Support devices: None. Heart: Normal. Lungs/Pleura: No acute pulmonary or pleural findings. IMPRESSION: 1. No acute findings. Signer Name: Trey Gunn MD Signed: 06/28/2020 10:39 PM Workstation Name: [id number]
[2020-06-28] MEDS ORDERED: LIDOCAINE-MPF (1%) 10 MG/1 ML VIAL 5 ML INFILTRATI ONE (22:55)
[2020-06-28] MEDS ORDERED: IBUPROFEN 600 MG TAB PO ONE (23:01)
== END 2020-06-29 00:13 | disposition home or self-care (01) ==
LOC: ED 18:07
DX: R50.9 Fever, unspecified (principal); R42 Dizziness and giddiness; Z20.2 Contact with and (suspected) exposure to infections with a predominantly sexual mode of transmission; F17.200 Nicotine dependence, unspecified, uncomplicated; F12.10 Cannabis abuse, uncomplicated; Z79.899 Other long term (current) drug therapy
CPT/HCPCS: 71045; 81001; 81025; 87086; 87210; 87591; 96372; 99284; J0696

== ENCOUNTER 2021-09-15 23:27 | Emergency (ER) | payer MEDICAID ==
[2021-09-16] MEDS ORDERED: ACETAMINOPHEN 325 MG/10.15 ML ORAL LIQD UNIT DOSE PO ONE (01:28)
[2021-09-16] MEDS ORDERED: AMOXICILLIN/K CLAV 875/125MG TAB PO ONE (05:52)
[2021-09-16] MEDS ORDERED: IBUPROFEN 800 MG TAB PO ONE (05:52)
[2021-09-16] MEDS ORDERED: predniSONE 20 MG TAB PO ONE (05:52)
--- NOTE | 2021-09-16 06:08 | Emergency Department Report ---
ED General Adult HPI - General Chief complaint: Sore Throat Stated complaint: SORE THROAT/FEVER Source: patient Mode of arrival: Ambulatory Limitations: No Limitations - History of Present Illness Initial comments: Patient 31-year-old -Citizen Of [place] female who presents for throat pain x3 days. Patient denies shortness of breath no stridor however there is dysphagia with swallowing. Dysphagia is described as burning with swallowing food. However patient is tolerating liquids without difficulty. Patient denies history of asthma no bronchitis no sinusitis. There is no productive cough. No nausea vomiting no abdominal pain. Symptoms are relieved by nothing tried. Patient rates symptoms at 5/10 with swallowing. There is no ear pain no dizziness no lightheadedness Severity scale (0 -10): 8 - Related Data Previous Rx's Medication Instructions Recorded Last Taken Type Acetaminophen/Codeine [Tylenol 1 tab PO Q6H PRN #15 tab 12/13/14 Unknown Rx /Codeine # 3 tab] Famotidine [Pepcid] 20 mg PO BID #40 tablet 12/13/14 Unknown Rx Promethazine [Phenergan] 25 mg PO Q6H PRN #20 tablet 12/13/14 Unknown Rx oxyCODONE /ACETAMINOPHEN [Percocet 1 tab PO Q6HR PRN #30 tablet 04/29/15 Unknown Rx 5/325 mg] Ibuprofen [Motrin 800 MG tab] 800 mg PO Q8HR PRN #30 tablet 06/18/17 Unknown Rx metroNIDAZOLE [Flagyl] 500 mg PO Q12HR #14 tab 06/18/17 Unknown Rx traMADoL [Ultram 50 MG tab] 50 mg PO Q6HR PRN #20 tablet 06/18/17 Unknown Rx Ondansetron [Zofran TAB] 4 mg PO Q8HR PRN #10 tablet 11/21/17 Unknown Rx Cefuroxime Axetil [Ceftin] 250 mg PO Q12H #14 ml 11/29/17 Unknown Rx Azithromycin 100 mg PO ONCE #2 tablet 06/28/20 Unknown Rx metroNIDAZOLE [Flagyl] 500 mg PO Q8HR 7 Days #21 tablet 06/28/20 Unknown Rx Amoxicillin/Potassium Clav 1 each PO BID 7 Days #14 09/16/21 Unknown Rx [Augmentin 875-125 Tablet] Ibuprofen [Motrin 800 MG tab] 800 mg PO Q8HR PRN #30 tablet 09/16/21 Unknown Rx predniSONE [Deltasone] 40 mg PO QDAY 5 Days #10 tab 09/16/21 Unknown Rx Allergies Allergy/AdvReac Type Severity Reaction Status Date / Time No Known Allergies Allergy Verified 01/01/19 11:12 ED Review of Systems ROS: Stated complaint: SORE THROAT/FEVER Other details as noted in HPI Constitutional: fever. denies: chills, malaise Eyes: denies: eye pain, eye discharge, vision change ENT: denies: ear pain, throat pain Respiratory: denies: cough, shortness of breath, wheezing Cardiovascular: denies: chest pain, palpitations Endocrine: no symptoms reported Gastrointestinal: denies: abdominal pain, nausea, diarrhea Genitourinary: denies: urgency, dysuria, discharge Musculoskeletal: denies: back pain, joint swelling, arthralgia Skin: denies: rash, lesions Neurological: denies: headache, weakness, numbness, paresthesias, confusion, vertigo Psychiatric: as per HPI Hematological/Lymphatic: denies: easy bleeding, easy bruising ED Past Medical Hx - Past Medical History Previous Medical History?: Yes Hx Hypertension: No Hx Congestive Heart Failure: No Hx Diabetes: No Hx Deep Vein Thrombosis: No Hx Renal Disease: No Hx Sickle Cell Disease: Yes (trait) Hx Seizures: No Hx Asthma: No Hx COPD: No Hx HIV: No - Social History Smoking Status: Current Every Day Smoker Substance Use Type: Alcohol, Marijuana - Medications Home Medications: Home Medications Medication Instructions Recorded Confirmed Last Taken Type Acetaminophen/Codeine [Tylenol 1 tab PO Q6H PRN #15 tab 12/13/14 03/07/15 Unknown Rx /Codeine # 3 tab] Famotidine [Pepcid] 20 mg PO BID #40 tablet 12/13/14 03/07/15 Unknown Rx Promethazine [Phenergan] 25 mg PO Q6H PRN #20 tablet 12/13/14 03/07/15 Unknown Rx oxyCODONE /ACETAMINOPHEN [Percocet 1 tab PO Q6HR PRN #30 tablet 04/29/15 Unknown Rx 5/325 mg] Ibuprofen [Motrin 800 MG tab] 800 mg PO Q8HR PRN #30 tablet 06/18/17 Unknown Rx metroNIDAZOLE [Flagyl] 500 mg PO Q12HR #14 tab 06/18/17 Unknown Rx traMADoL [Ultram 50 MG tab] 50 mg PO Q6HR PRN #20 tablet 06/18/17 Unknown Rx Ondansetron [Zofran TAB] 4 mg PO Q8HR PRN #10 tablet 11/21/17 Unknown Rx Cefuroxime Axetil [Ceftin] 250 mg PO Q12H #14 ml 11/29/17 Unknown Rx Azithromycin 100 mg PO ONCE #2 tablet 06/28/20 Unknown Rx metroNIDAZOLE [Flagyl] 500 mg PO Q8HR 7 Days #21 tablet 06/28/20 Unknown Rx Amoxicillin/Potassium Clav 1 each PO BID 7 Days #14 09/16/21 Unknown Rx [Augmentin 875-125 Tablet] Ibuprofen [Motrin 800 MG tab] 800 mg PO Q8HR PRN #30 tablet 09/16/21 Unknown Rx predniSONE [Deltasone] 40 mg PO QDAY 5 Days #10 tab 09/16/21 Unknown Rx ED Physical Exam - General Limitations: No Limitations General appearance: alert, in no apparent distress - Head Head exam: Present: atraumatic, normocephalic - Eye Eye exam: Present: PERRL, EOMI Pupils: Present: normal accommodation - ENT ENT exam: Present: mucous membranes moist, TM's normal bilaterally, normal external ear exam - Expanded ENT Exam Expanded Throat exam: Positive: tonsillar erythema, tonsillomegaly, tonsillar exudate, other (Uvula midline no stridor no wheezing no lesions no peritonsillar abscess visible). Negative: R peritonsillar mass, L peritonsillar mass - Neck Neck exam: Present: normal inspection, full ROM, lymphadenopathy. Absent: tenderness, thyromegaly - Expanded Neck Exam Expanded Neck exam: Absent: tenderness, midline deformity, anterior neck swelling, thyroid mass, carotid bruit, tracheal deviation - Respiratory Respiratory exam: Present: normal lung sounds bilaterally. Absent: respiratory distress, wheezes, stridor, chest wall tenderness - Cardiovascular Cardiovascular Exam: Present: regular rate, normal rhythm, normal heart sounds. Absent: systolic murmur, diastolic murmur, rubs, gallop - GI/Abdominal GI/Abdominal exam: Present: soft, normal bowel sounds. Absent: distended, tenderness - Rectal Rectal exam: Present: deferred - Extremities Exam Extremities exam: Present: normal inspection, full ROM, normal capillary refill - Back Exam Back exam: Present: normal inspection, full ROM. Absent: CVA tenderness (R), CVA tenderness (L) - Neurological Exam Neurological exam: Present: alert, oriented X3, CN II-XII intact, normal gait - Psychiatric Psychiatric exam: Present: normal affect, normal mood - Skin Skin exam: Present: warm, dry, intact, normal color. Absent: rash ED Course Vital Signs 09/16/21 09/16/21 01:23 01:37 Temperature 100.4 F H Pulse Rate 82 Respiratory 20 20 Rate Blood Pressure 115/87 [Right] O2 Sat by Pulse 99 Oximetry ED Medical Decision Making - Medical Decision Making Rapid strep was negative however there is noted exudate erythema to pharynx airway is patent no visible peritonsillar abscess patient is tolerating p.o. intake plan DC to home with prescriptions. Follow-up with primary care doctor in 2 to 3 days. Continue to hydrate. Patient verbalized agreement and understanding with discharge plan. Patient DC'd home in stable condition at this time. Critical care attestation.: If time is entered above; I have spent that time in minutes in the direct care of this critically ill patient, excluding procedure time. ED Disposition Clinical Impression: Pharyngitis Qualifiers: Pharyngitis/tonsillitis etiology: unspecified etiology Qualified Code(s): J02.9 - Acute pharyngitis, unspecified Disposition: 01 HOME / SELF CARE / HOMELESS Is pt being admited?: No Does the pt Need Aspirin: No Condition: Stable Instructions: Pharyngitis Additional Instructions: Take medications as prescribed, hydrate as directed. Follow-up with your doctor in 2 to 3 days. Return to emergency department should symptoms worsen. Prescriptions: Amoxicillin/Potassium Clav [Augmentin 875-125 Tablet] 1 each PO BID 7 Days #14 predniSONE [Deltasone] 40 mg PO QDAY 5 Days #10 tab Ibuprofen [Motrin 800 MG tab] 800 mg PO Q8HR PRN #30 tablet PRN Reason: pain fever Referrals: DANIAL SMITH MD [Staff Physician] - 3-5 Days Forms: Work/School Release Form(ED) Time of Disposition: 06:16
[2021-09-16 06:29] VITALS: BP 122/74
== END 2021-09-16 06:30 | disposition home or self-care (01) ==
LOC: ED 23:27
DX: J02.9 Acute pharyngitis, unspecified (principal); F10.20 Alcohol dependence, uncomplicated; F17.200 Nicotine dependence, unspecified, uncomplicated; F12.90 Cannabis use, unspecified, uncomplicated
CPT/HCPCS: 87116; 87430; 99283